=== PATIENT | female | born 1980 | race African-American/Black ===

== ENCOUNTER 2017-07-22 16:56 | Emergency (ER) | payer MEDICARE, MEDICAID ==
[~2017-07-22] VITALS: Ht 172.7 cm; Wt 86.1 kg
[2017-07-22] MEDS ORDERED: FAMOTIDINE 20MG/2ML VIAL IV STA (18:39)
[2017-07-22] MEDS ORDERED: DICYCLOMINE 10 MG/5 ML ORAL SYR PO STA (18:39)
[2017-07-22] MEDS ORDERED: SODIUM CHLORIDE 0.9% 1,000 ML IV ONE (18:39)
[2017-07-22] MEDS ORDERED: ONDANSETRON HCL 4MG/2ML VIAL IV STA (18:39)
[2017-07-22 19:07] LABS: HEMATOCRIT. 39.3 % (36.0-48.0); HEMOGLOBIN. 13.5 g/dL (12.0-16.0); MEAN CORPUSCULAR HEMOGLOBIN 30.9 pg (28.0-32.0); MEAN CORPUSCULAR VOLUME 89.7 fL (81.0-99.0); MEAN PLATELET VOLUME 8.1 fl (7.4-10.4); PLATELET 264 x1000/uL (130-400); RED BLOOD CELL COUNT 4.38 mill/uL (4.2-5.4); RED CELL DISTRIBUTION WIDTH 16.7 % (11.6-14.6)
[2017-07-22 19:11] LABS: INR 1.1; PROTHROMBIN TIME 10.9 sec (9.4-11.6)
[2017-07-22 19:20] LABS: CARBON DIOXIDE 23 mEq/L (21-32); CHLORIDE 107 mEq/L (98-107); HCG SCREEN NEGATIVE
[2017-07-22 19:26] LABS: CLARITY URINE CLEAR (CLEAR); COLOR URINE YELLOW (YELLOW); GLUCOSE URINE NEGATIVE (NEGATIVE); KETONES URINE NEGATIVE (NEGATIVE); LEUKOCYTE ESTERASE URINE NEGATIVE (NEGATIVE); NITRITE URINE NEGATIVE (NEGATIVE); OCCULT BLOOD URINE 2+ (NEGATIVE); PROTEIN URINE NEGATIVE (NEGATIVE); SPECIFIC GRAVITY URINE 1.024 (1.005-1.030); UROBILINOGEN URINE 0.2 E.U./dL (0.2-1.0)
[2017-07-22 20:14] LABS: PLATELET ESTIMATE NORMAL
[2017-07-22 21:34] VITALS: BP 129/87
== END 2017-07-22 21:35 | disposition home or self-care (01) ==
LOC: ER 16:56
DX: R10.9 Unspecified abdominal pain (principal); R11.2 Nausea with vomiting, unspecified; I10 Essential (primary) hypertension; F17.200 Nicotine dependence, unspecified, uncomplicated; Z88.0 Allergy status to penicillin; Z88.6 Allergy status to analgesic agent; Z88.8 Allergy status to other drugs, medicaments and biological substances; F12.10 Cannabis abuse, uncomplicated
CPT/HCPCS: 36415; 80053; 81001; 81025; 83690; 84703; 85025; 85610; 96361; 96374; 96375; 99285; J2405; J3490; J7030